=== PATIENT | female | born 1975 | race Caucasian/White ===

== ENCOUNTER 2025-01-10 06:40 | Day surgery (SDC) | payer BC ==
[~2025-01-10] VITALS: Ht 157.5 cm; Wt 72.2 kg
[~2025-01-10 06:40] MED LIST: IBUP600 PO; OXYCODONE-ACET1 EA13 PO
[2025-01-10] MEDS ORDERED: Lidocaine 1%-Epineph 1:100000 20 ML MDV ONE (06:54)
[2025-01-10] MEDS ORDERED: CeFAZolin Sodium 2,000 MG VIAL ONE (06:59)
[2025-01-10] MEDS ORDERED: propofoL 100 ML IV ONE (07:01)
[2025-01-10] MEDS ORDERED: CALCIUM CIT 311 EAC7 (07:27)
[2025-01-10] MEDS ORDERED: HAIR, SKIN AND1 EAC3 (07:27)
[2025-01-10] MEDS ORDERED: MAGCIT300 (07:27)
[2025-01-10] MEDS ORDERED: Lactated Ringer's 1,000 ML IV ONE (07:42)
[2025-01-10] MEDS ORDERED: Ketorolac Tromethamine 30mg Vial ONE (07:56)
[2025-01-10] MEDS ORDERED: Ondansetron HCl 2 MG / ML 2ML Vial ONE ×2 (07:56→08:12)
[2025-01-10] MEDS ORDERED: HYDROmorphone HCl/Pf 1MG SYR ONE (07:56)
[2025-01-10] MEDS ORDERED: Dexamethasone Sod Phos 10 MG/ML 1ML VIAL ONE (07:56)
--- NOTE | 2025-01-10 08:16 | NUR ---
01/10/25 0816 Lacie Balderas HARDWARE RETURNED TO PATIENT.
[2025-01-10] MEDS ORDERED: Lidocaine 1%-Epineph 1:100000 20 ML MDV INJ ONE ×2 (08:28)
--- NOTE | 2025-01-10 09:04 | NUR ---
01/10/25 0904 Natalie Lam PT SITTING UP IN RECLINER DRINKING APPLE JUICE, TOLERATING WELL. PT DENIES PAIN/NAUSEA, VSS, ON RA. LUE ELEVATED & ICED ORDERED. NO VISIBLE SIGNS OF DISTRESS NOTED.
[2025-01-10 09:07] VITALS: BP 115/69
[2025-01-10] MEDS ORDERED: Metoclopramide HCl 5MG / ML 2ML Vial ONE (09:10)
== END 2025-01-10 09:37 | disposition home or self-care (01) ==
LOC: ORSCSDS 06:40
PROVIDERS: Orthopaedic Surgery
PROC: 0QP104Z Removal of Internal Fixation Device from Sacrum, Open Approach (ICD-10-PCS; principal; 2025-01-10 08:00)
DX: S52.502D Unspecified fracture of the lower end of left radius, subsequent encounter for closed fracture with routine healing (principal); T84.84XA Pain due to internal orthopedic prosthetic devices, implants and grafts, initial encounter
CPT/HCPCS: J0690; J1100; J1171; J1885; J2405; J2704; J2765

== ENCOUNTER → 2025-09-25 | Outpatient (CLI) | payer BC ==
[~2025-09-25] MED LIST changes: +CALCIUM CIT 311 EAC7; +HAIR, SKIN AND1 EAC3; +MAGCIT300
[2025-09-25 15:11] LABS: BASOPHILS ABSOLUTE AUTO 0.03 K/mm3 (0.00-0.23); BASOPHILS PERCENT AUTO 0 % (0-2); EOSINOPHILS ABSOLUTE AUTO 0.25 K/mm3 (0.00-0.68); EOSINOPHILS PERCENT AUTO 4 % (0-6); Hematocrit 42.1 % (33.0-51.0); Hemoglobin 13.2 g/dL (11.5-16.0); IMMATURE GRAN ABSOLUTE AUTO 0.02 K/mm3 (0.00-0.10); IMMATURE GRAN PERCENT AUTO 0 % (0-1); LYMPHOCYTES ABSOLUTE AUTO 0.94 K/mm3 (0.84-5.20); LYMPHOCYTES PERCENT AUTO 14 % (21-46); MONOCYTES ABSOLUTE AUTO 0.48 K/mm3 (0.16-1.47); MONOCYTES PERCENT AUTO 7 % (4-13); Mean Corpuscular HGB Conc 31.4 g/dL (31.5-36.5); Mean Corpuscular Volume 85 fL (80-100); NEUTROPHILS ABSOLUTE AUTO 5.14 K/mm3 (1.96-9.15); NEUTROPHILS PERCENT AUTO 75 % (41-73); NRBC ABSOLUTE 0.00 K/mm3 (0.00-0.02); NRBC Auto 0.0 /100 WBC (0.0-0.2); Platelet Count 241 K/mm3 (150-400); RDW Coefficient Variation 20.9 % (11.7-14.2); RDW Standard Deviation 62.5 fL (35.1-46.3)
[2025-09-25 15:22] LABS: Alanine Aminotransfer (ALT/SGP 21.0 U/L (12-78); Albumin, Blood 3.3 g/dL (3.4-5.0); Albumin/Globulin Ratio 0.8 (0.8-1.8); Anion Gap 12.0 mmol/L (3-11); Aspartate Aminotrans (AST/SGOT 14.0 U/L (12-37); Bilirubin, Total 0.4 mg/dL (0.1-1.0); Blood Urea Nitrogen 12.0 mg/dL (8-24); CO2, Blood 28.0 mmol/L (21-32); Calcium, Blood 9.3 mg/dL (8.5-10.1); Chloride, Blood 100.0 mmol/L (98-108); Creatinine, Blood 1.01 mg/dL (0.40-1.00); Globulin, Blood 4.4 g/dL (2.2-4.0); Glucose, Blood 103.0 mg/dL (70-99); Potassium, Blood 3.7 mmol/L (3.5-5.5); Sodium, Blood 136.0 mmol/L (136-145); Total Protein, Blood 7.7 g/dL (6.4-8.2)
== END ==
LOC: LAB 15:07 → LAB SHORT 15:07
PROVIDERS: Physician Assistant
DX: R10.32 Left lower quadrant pain (principal); R82.81 Pyuria
CPT/HCPCS: 80053; 83690; 85025; 87077; 87086; 87186